=== PATIENT | male | born 1985 | race Caucasian/White ===

== ENCOUNTER 2022-04-20 22:32 | Emergency (ER) | payer BC ==
[2022-04-20] MEDS ORDERED: Acetaminophen/HYDROcodone 325-10 MG Tab PO ONE (22:33)
[2022-04-20] MEDS ORDERED: Ondansetron 4 MG Tab.DIS PO ONE (22:33)
[2022-04-20] MEDS ORDERED: HYDROmorphone 1 MG/ML Syringe IVPUSH ONE (23:05)
[2022-04-20] MEDS ORDERED: Ondansetron 4 MG/2 ML SDV IVPUSH ONE (23:05)
[2022-04-20] MEDS ORDERED: Sodium Chloride 0.9% 1,000 ML IV ONE (23:05)
[2022-04-20 23:54] LABS: ANION GAP 13.6 mEq/L (7-13)
[2022-04-21] MEDS ORDERED: HYDROmorphone 1 MG/ML Syringe IVPUSH ONE (00:01)
[2022-04-21] MEDS ORDERED: Metoclopramide 10 MG/2 ML SDV IVPUSH ONE (00:01)
[2022-04-21] MEDS ORDERED: Acetaminophen/HYDROcodone 325-10 MG Tab ONE (02:14)
[2022-04-21] MEDS ORDERED: Ondansetron 4 MG Tab.DIS ONE (02:14)
== END 2022-04-21 02:36 | disposition home or self-care (01) ==
LOC: DL.ED 22:32
DX: N20.0 Calculus of kidney (principal); F17.210 Nicotine dependence, cigarettes, uncomplicated; Z88.0 Allergy status to penicillin
CPT/HCPCS: 36415; 74176; 80053; 81001; 82150; 83690; 85025; 96361; 96374; 96375; 96376; 99284; A9270; J1170; J2405; J2765; J7030